=== PATIENT | female | born 1940 | race Caucasian/White ===

== ENCOUNTER → 2017-07-11 | Outpatient (CLI) | payer MEDICARE ==
--- NOTE | 2017-07-11 13:30 | XR ---
EXAMINATION TYPE: XR chest 2V DATE OF EXAM: 07/11/2017 COMPARISON: 07/27/2016 HISTORY: Shortness of breath TECHNIQUE: Frontal and lateral views of the chest are obtained. FINDINGS: Scattered senescent parenchymal changes noted. Hyperinflation compatible with COPD. No evidence for infiltrate. No evidence for atelectasis. Heart size is stable. Mediastinal structures are stable and grossly unremarkable. No evidence for hilar prominence. Degenerative changes dorsal spine. IMPRESSION: 1. No evidence for acute pulmonary disease.
== END | disposition home or self-care (01) ==
LOC: RADXRMAIN 13:11
PROVIDERS: ATTEND Family Medicine
DX: J44.9 Chronic obstructive pulmonary disease, unspecified (principal)
CPT/HCPCS: 71020

== ENCOUNTER → 2018-02-11 | Outpatient (CLI) | payer MEDICARE ==
--- NOTE | 2018-02-11 11:37 | XR ---
EXAMINATION TYPE: XR ribs RT DATE OF EXAM: 02/11/2018 COMPARISON: NONE HISTORY: 77-year-old female fall 2 weeks ago, complaining of right rib pain TECHNIQUE: 4 views FINDINGS: No displaced right rib fracture seen. Visualized right hemithorax is clear. IMPRESSION: No displaced right rib fracture seen.
== END | disposition home or self-care (01) ==
LOC: RADXRMAIN 10:27
PROVIDERS: ATTEND Family Medicine
DX: T79.9XXA Unspecified early complication of trauma, initial encounter (principal)

== ENCOUNTER → 2018-04-02 | Outpatient (CLI) | payer MEDICARE ==
--- NOTE | 2018-04-03 08:52 | MM ---
Reason for exam: additional evaluation requested from prior study. Last mammogram was performed 1 year and 8 months ago. History: Patient is postmenopausal and has history of breast cancer at age 59. Family history of breast cancer in sister at age 76. Benign excisional biopsy of the right breast, 2006. Malignant mastectomy of the left breast, 1998. Took hormonal contraceptives for 1 year beginning at age 30. Physical Findings: A clinical breast exam by your physician is recommended on an annual basis and results should be correlated with mammographic findings. MG 3D Diag Mammo W/Cad RT CC and MLO view(s) were taken of the right breast. Prior study comparison: July 27, 2016, right breast MG 3d diag mammo w/cad RT. January 06, 2015, mammogram, performed at [place]. There are scattered fibroglandular densities. No significant new findings when compared with previous films. These results were verbally communicated with the patient and result sheet given to the patient on 04/02/18. ASSESSMENT: Benign, BI-RAD 2 RECOMMENDATION: Routine screening mammogram of both breasts in 1 year.
== END | disposition home or self-care (01) ==
LOC: RADMAMWWP 13:24
PROVIDERS: ATTEND Family Medicine
DX: Z08 Encounter for follow-up examination after completed treatment for malignant neoplasm (principal); Z85.3 Personal history of malignant neoplasm of breast
CPT/HCPCS: 77065; G0279; 77061

== ENCOUNTER → 2018-07-25 | Outpatient (CLI) | payer MEDICARE ==
--- NOTE | 2018-07-25 15:37 | CTL ---
EXAMINATION TYPE: CT Low Dose Lung DATE OF EXAM ORDERED: 07/25/2018 HISTORY: Personal history of tobacco use. Lung cancer screening CT DLP: 85.[address] CTDI: 2.4 mGy Automated exposure control for dose reduction was used. SCREENING VISIT: Subsequent COMPARISON: 03/26/2018 TECHNIQUE: Low dose computed tomography scan was performed through the chest at 1 mm thick sections a nd reconstructed images in the coronal plane at [address] DIAGNOSTIC QUALITY: Satisfactory FINDINGS: LUNG NODULES: Present, detailed below: Small apical nodules best identified in the coronal reconstruc mojgan images are again evident and stable in size. LUNGS: COPD: Severity: Moderate. Findings are compatible with some chronic bronchitis. Peribronchial thicken ing is present bilaterally Fibrosis: Severity: None Lymph nodes: Multiple scattered small lymph nodes are within the mediastinum. Other findings: None RIGHT PLEURAL SPACE: Effusion: None Calcification: None Thickening: None Pneumothorax: None LEFT PLEURAL SPACE: Effusion: None Calcification: None Thickening: None Pneumothorax: None HEART: Heart Size: Normal Coronary calcification: Mild Pericardial effusion: None OTHER FINDINGS: Upper abdomen: Normal Bony thorax: Normal Supraclavicular region: Normal Other: Left mastectomy has been performed. The ascending thoracic aorta at the level of main pulmonary artery is 3.3 cm. The main pulmonary darell ry the bifurcation is 2.1 cm. IMPRESSION: Probably benign findings. FOLLOW UP CT CHEST RECOMMENDATION: Follow-up low dose screening CT chest [address] LUNG RAD: Lung rad 3
== END | disposition home or self-care (01) ==
LOC: RADCTMAIN 13:09
PROVIDERS: ATTEND Family Medicine
DX: Z12.2 Encounter for screening for malignant neoplasm of respiratory organs (principal); Z87.891 Personal history of nicotine dependence

== ENCOUNTER → 2019-07-10 | Outpatient (CLI) | payer MEDICARE ==
--- NOTE | 2019-07-11 14:13 | MM ---
Reason for exam: screening (asymptomatic). Last mammogram was performed 1 year and 3 months ago. History: Patient is postmenopausal and has history of breast cancer at age 59. Family history of breast cancer in sister at age 76. Benign excisional biopsy of the right breast, 2006. Malignant mastectomy of the left breast, 1998. Took hormonal contraceptives for 1 year beginning at age 30. Physical Findings: A clinical breast exam by your physician is recommended on an annual basis and results should be correlated with mammographic findings. MG 3D Scr [place] Unilateral W/Cad CC, MLO, and XCCL view(s) were taken of the right breast. Prior study comparison: April 02, 2018, right breast MG 3d diag mammo w/cad RT. July 27, 2016, right breast MG 3d diag mammo w/cad RT. There are scattered fibroglandular densities. Benign appearing calcifications in the right breast. No suspicious abnormality. No significant changes when compared with prior studies. ASSESSMENT: Benign, BI-RAD 2 RECOMMENDATION: Routine screening mammogram of the right breast in 1 year.
== END | disposition home or self-care (01) ==
LOC: RADMAMWWP 13:20
PROVIDERS: ATTEND Family Medicine
DX: Z12.31 Encounter for screening mammogram for malignant neoplasm of breast (principal)
CPT/HCPCS: 77067

== ENCOUNTER → 2019-09-08 | Outpatient (CLI) | payer MEDICARE ==
--- NOTE | 2019-09-08 14:47 | CT ---
EXAMINATION TYPE: CT chest wo con DATE OF EXAM: 09/08/2019 COMPARISON: 07/25/2018 HISTORY: Pulmonary nodule follow-up. CT DLP: 252.[address] of the chest was performed with lung and mediastinal window settings submitted. The la ck of contrast limits evaluation of the vascular, mediastinal and parenchymal structures including th e upper abdomen. LUNGS: Apical pleural nodularity remains unchanged. Largest pleural-based nodule left upper lobe torie ures 6 mm versus 6 mm previously. Largest nodular density right upper lobe and measures approximately 5.6 mm unchanged from prior study. No new nodules are identified. No evidence for mass or infiltrate . MEDIASTINUM/KAELA: Thoracic aorta is of normal caliber with limited evaluation given lack of contrast . The heart is not enlarged. No evidence for mediastinal mass. No lymph nodes greater than 1cm. UPPER ABDOMEN: No significant abnormality is seen. OTHER: Left sided mastectomy changes redemonstrated. IMPRESSION: 1. Stable less scattered upper lobe pleural-based nodularity. No suspicious nodules are seen. Contin ued follow-up over a two-year timeframe is recommended radiographically.
== END | disposition home or self-care (01) ==
LOC: RADCTMAIN 14:21
PROVIDERS: ATTEND Family Medicine
DX: R91.8 Other nonspecific abnormal finding of lung field (principal)
CPT/HCPCS: 71250

== ENCOUNTER → 2021-01-11 | Outpatient (CLI) | payer MEDICARE ==
--- NOTE | 2021-01-12 10:26 | MM ---
Reason for exam: screening (asymptomatic). Last mammogram was performed 1 year and 6 months ago. History: Patient is postmenopausal and has history of breast cancer at age 59. Family history of breast cancer in sister at age 76. Benign excisional biopsy of the right breast, 2006. Malignant mastectomy of the left breast, 1998. Took hormonal contraceptives for 1 year beginning at age 30. Physical Findings: A clinical breast exam by your physician is recommended on an annual basis and results should be correlated with mammographic findings. MG 3D Screening Mammo W/Cad CC and MLO view(s) were taken of the right breast. Prior study comparison: July 10, 2019, bilateral MG 3d scr barrie unilateral w/cad. April 02, 2018, right breast MG 3d diag mammo w/cad RT. There are scattered fibroglandular densities. There are benign appearing round, linear calcifications in the right breast. There is no discrete abnormality. ASSESSMENT: Benign, BI-RAD 2 RECOMMENDATION: Follow-up diagnostic mammogram of the right breast in 1 year.
== END | disposition home or self-care (01) ==
LOC: RADMAMWWP 11:24
PROVIDERS: ATTEND Family Medicine
DX: Z12.31 Encounter for screening mammogram for malignant neoplasm of breast (principal); Z90.12 Acquired absence of left breast and nipple; Z80.3 Family history of malignant neoplasm of breast
CPT/HCPCS: 77063; 77067

== ENCOUNTER 2021-05-12 08:27 | Day surgery (SDC) | payer MEDICARE ==
[2021-05-10 11:22] VITALS: BMI 24.3
[~2021-05-12 08:27] MED LIST: LACTATED RINGERS 1,000 ML IV SCH
[2021-05-12] MEDS ORDERED: LIDOCAINE 1% (10MG/ML) FOR IV START INTRADERMA ONE (09:28)
[2021-05-12 09:35] VITALS: RESP 16; TEMP 98.7
[2021-05-12] MEDS ORDERED: PROPOFOL 10 MG/ML 20 ML VIAL IV ONE (09:35)
--- NOTE | 2021-05-12 09:38 | P.GSHP ---
History of Present Illness H&P Date: 05/12/21 Chief Complaint: GI bleed This a 80-year-old female who presents today for colonoscopy. Patient is fecal occult blood positive. She Past Medical History Past Medical History: Cancer, COPD, Hyperlipidemia, Hypertension Additional Past Medical History / Comment(s): lt breast cancer. pos.cologuard History of Any Multi-Drug Resistant Organisms: None Reported Past Surgical History: Breast Surgery Additional Past Surgical History / Comment(s): lt mastectomy with lymph nodes Past Anesthesia/Blood Transfusion Reactions: No Reported Reaction Smoking Status: Current every day smoker Medications and Allergies Home Medications Medication Instructions Recorded Confirmed Type Albuterol Sulfate [Proair Hfa] 1 - 2 puff INHALATION DAILY PRN 05/10/21 05/12/21 History Aspirin [Adult Low Dose Aspirin EC] 81 mg PO DAILY 05/10/21 05/12/21 History Atorvastatin [Lipitor] 20 mg PO HS 05/10/21 05/12/21 History Bisoprolol-Hctz 10-6.25 mg [Ziac 1 tab PO HS 05/10/21 05/12/21 History 10-6.25 MG] Cholecalciferol [Vitamin D3 (25 25 mcg PO DAILY 05/10/21 05/12/21 History Mcg = 1000 Iu)] Tiotropium Br/Olodaterol HCl 2 puff INHALATION DAILY 05/10/21 05/12/21 History [Stiolto Respimat Inhal [place]] Allergies Allergy/AdvReac Type Severity Reaction Status Date / Time No Known Allergies Allergy Verified 05/12/21 09:20 Surgical - Exam Vital Signs Temp Pulse Resp BP Pulse Ox 98.7 F 92 16 173/79 96 05/12/21 09:28 05/12/21 09:28 05/12/21 09:28 05/12/21 09:28 05/12/21 09:28 - General well developed, well nourished, no distress - Eyes PERRL - ENT normal pinna - Neck no masses - Respiratory normal expansion - Cardiovascular Rhythm: regular - Abdomen Abdomen: soft, non tender Assessment and Plan Assessment: GI bleed. We'll perform colonoscopy.
--- NOTE | 2021-05-12 10:00 | P.OP ---
Date of Procedure: 05/12/21 Preoperative Diagnosis: GI bleed Postoperative Diagnosis: Internal and external hemorrhoids Diverticulosis Procedure(s) Performed: Colonoscopy Anesthesia: MAC Surgeon: Harjit Ibrahim Pathology: none sent Condition: stable Disposition: PACU Description of Procedure: The patient's placed on the endoscopy table in the lateral position. She received IV sedation. Digital rectal exam was performed which revealed internal/external hemorrhoids. Flexible scope was then placed patient anus and passed throughout the entire colon. The ileocecal valve sutures. The cecum appeared normal. The ascending colon was normal. In the transverse colon and a few scattered diverticula. In the descending and sigmoid: There was more diverticula seen. The scope was brought back the rectum this appeared normal. There is no unsteady GI bleed. His presumed patient's GI bleed was due to diverticulosis or hemorrhoids.
[2021-05-12 10:59] VITALS: BP 116/52; PULSE 88
== END 2021-05-12 10:59 | disposition home or self-care (01) ==
LOC: ORWHC2ENDO 08:27
PROVIDERS: ATTEND Surgery
DX: K64.8 Other hemorrhoids (principal); K64.4 Residual hemorrhoidal skin tags; E78.5 Hyperlipidemia, unspecified; F17.200 Nicotine dependence, unspecified, uncomplicated; I10 Essential (primary) hypertension; J44.9 Chronic obstructive pulmonary disease, unspecified; Z85.3 Personal history of malignant neoplasm of breast; Z79.82 Long term (current) use of aspirin; Z90.12 Acquired absence of left breast and nipple
CPT/HCPCS: 45378; J2704

== ENCOUNTER → 2022-05-26 | Outpatient (CLI) | payer MEDICARE ==
--- NOTE | 2022-05-29 18:53 | MM ---
Reason for Exam: Screening (asymptomatic). Last mammogram was performed 1 year(s) and 4 month(s) ago. Patient History: Menarche at age 12. First Full-Term at age 22. Postmenopausal. Breast cancer, left, age 59. Hormonal Contraceptives for 1 year from age 30 until age 31. 1998, Malignant Mastectomy on the left side. 2006, Benign Excisional Biopsy on the right side. Sister had breast cancer, age 76. Prior Study Comparison: 04/02/2018 Right Diagnostic Mammogram, [facility]. 07/10/2019 Bilateral Screening Mammogram, [facility]. 01/11/2021 Bilateral Screening Mammogram, [facility]. Tissue Density: Right: There are scattered fibroglandular densities. Findings: Analyzed By CAD. Benign secretory calcifications are noted. No significant change from prior exams. Overall Assessment: Benign, BI-RAD 2 Management: Screening Mammogram of the right breast in 1 year. 1. Patient should continue monthly self breast exam. 2. A clinical breast exam by your physician is recommended on an annual basis. 3. This exam should not preclude additional follow-up of suspicious palpable abnormalities. Electronically signed and approved by: Gita Stiles M.D. Radiologist
== END | disposition home or self-care (01) ==
LOC: RADMAMWWP 14:34
PROVIDERS: ATTEND Family Medicine
DX: Z12.31 Encounter for screening mammogram for malignant neoplasm of breast (principal); Z78.0 Asymptomatic menopausal state; Z80.3 Family history of malignant neoplasm of breast
CPT/HCPCS: 77067

== ENCOUNTER 2023-02-17 23:18 | Inpatient (IN) | payer MEDICARE ==
[2023-02-17] MEDS ORDERED: IPRATROPIUM 0.5 MG/2.5 ML NEBU INHALATION STA (23:25)
[2023-02-17] MEDS ORDERED: DEXAMETHASONE SOD PHOSPHATE 10 MG/ML 1 ML VIAL IVP STA (23:25)
[2023-02-17] MEDS ORDERED: ALBUTEROL NEBULIZED 2.5 MG/3 ML INHALATION STA (23:25)
[2023-02-17] MEDS: MAGNESIUM SULFATE-D5W PMX 1 GM in DEXTROSE/WATER 1 100ML.BAG IVPB SCH (23:41)
[2023-02-17] MEDS ORDERED: LORazepam 2 MG/ML INJ IV STA (23:46)
[2023-02-17] MEDS ORDERED: ONDANSETRON 4 MG/2 ML VIAL IVP STA (23:47)
[2023-02-18 00:08] LABS: Basophils % (A) 0 %; Eosinophils # (A) 0.5 k/uL (0-0.7); Eosinophils % (A) 7 %; HCT 39.9 % (34.0-46.0); HGB 12.9 gm/dL (11.4-16.0); Lymphocytes # (A) 2.5 k/uL (1.0-4.8); Lymphocytes % (A) 35 %; MCH 29.6 pg (25.0-35.0); MCHC 32.2 g/dL (31.0-37.0); MCV 91.9 fL (80.0-100.0); Monocytes # (A) 0.4 k/uL (0-1.0); Monocytes % (A) 6 %; Neutrophils # (A) 3.4 k/uL (1.3-7.7); Neutrophils % (A) 49 %; Platelet Count 262 k/uL (150-450); RBC 4.34 m/uL (3.80-5.40); RDW 13.7 % (11.5-15.5); WBC 6.9 k/uL (3.8-10.6)
[2023-02-18] MEDS ORDERED: NALOXONE 0.4 MG/ML 1 ML VIAL IV PRN (00:12)
--- NOTE | 2023-02-18 00:15 | ED ---
General Adult HPI - General Chief complaint: Shortness of Breath Stated complaint: sob Time Seen by Provider: 02/17/23 23:18 Source: EMS Mode of arrival: EMS Limitations: no limitations - History of Present Illness Initial comments: This is an 82-year-old female with a past medical history including COPD and hypertension presented to the emergency department via EMS for increasing shortness of breath. The patient did present, tripoding in shortened sentences only able to speak in 1-2 words at a time. The patient had been given a DuoNeb 2 by EMS with only minimal improvement. The patient did state that this is been occurring over the last 3 hours and stated that it does feel like her COPD. The patient could not provide any further history at this time. The patient did however deny any recent sick contacts and denied any knowledge of what makes her COPD worse or better. - Related Data Home Medications Medication Instructions Recorded Confirmed Albuterol Sulfate [Proair Hfa] 1 - 2 puff INHALATION DAILY PRN 05/10/21 05/12/21 Aspirin [Adult Low Dose Aspirin EC] 81 mg PO DAILY 05/10/21 05/12/21 Atorvastatin [Lipitor] 20 mg PO HS 05/10/21 05/12/21 Bisoprolol-Hctz 10-6.25 mg [Ziac 1 tab PO HS 05/10/21 05/12/21 10-6.25 MG] Cholecalciferol [Vitamin D3 (25 25 mcg PO DAILY 05/10/21 05/12/21 Mcg = 1000 Iu)] Tiotropium Br/Olodaterol HCl 2 puff INHALATION DAILY 05/10/21 05/12/21 [Stiolto Respimat Inhal [place]] Allergies Allergy/AdvReac Type Severity Reaction Status Date / Time No Known Allergies Allergy Verified 05/12/21 09:20 Review of Systems ROS Statement: Those systems with pertinent positive or pertinent negative responses have been documented in the HPI. ROS Other: All systems not noted in ROS Statement are negative. Past Medical History Past Medical History: Cancer, COPD, Hyperlipidemia, Hypertension Additional Past Medical History / Comment(s): lt breast cancer. pos.cologuard History of Any Multi-Drug Resistant Organisms: None Reported Past Surgical History: Breast Surgery Additional Past Surgical History / Comment(s): lt mastectomy with lymph nodes Past Anesthesia/Blood Transfusion Reactions: No Reported Reaction Past Psychological History: No Psychological Hx Reported Smoking Status: Current every day smoker - Past Family History Mother Family Medical History: No Reported History Father Family Medical History: No Reported History General Exam Limitations: no limitations General appearance: alert, anxious, in distress (In respiratory distress) Head exam: Present: atraumatic, normocephalic, normal inspection Eye exam: Present: normal appearance, PERRL Pupils: Present: normal accommodation ENT exam: Present: normal exam, normal oropharynx, mucous membranes moist Neck exam: Present: normal inspection, full ROM Respiratory exam: Present: respiratory distress, wheezes, decreased breath sounds Cardiovascular Exam: Present: regular rate, normal rhythm, normal heart sounds GI/Abdominal exam: Present: soft, normal bowel sounds Extremities exam: Present: normal inspection, full ROM Back exam: Present: normal inspection, full ROM Neurological exam: Present: alert, oriented X3, CN II-XII intact Psychiatric exam: Present: normal mood, anxious Skin exam: Present: warm, dry Course Vital Signs 02/17/23 02/17/23 02/17/23 23:19 23:40 23:52 Temperature Pulse Rate 98 94 Respiratory 28 H Rate Blood Pressure 181/99 192/92 O2 Sat by Pulse 83 L 97 Oximetry Fraction of 50 Inspired Oxygen (FIO2) 02/18/23 02/18/23 02/18/23 00:02 00:04 00:06 Temperature Pulse Rate 84 83 84 Respiratory Rate Blood Pressure 138/73 138/73 138/73 O2 Sat by Pulse 100 100 100 Oximetry Fraction of Inspired Oxygen (FIO2) 02/18/23 02/18/23 02/18/23 00:08 00:15 00:25 Temperature Pulse Rate 82 68 Respiratory 20 Rate Blood Pressure 138/73 138/73 O2 Sat by Pulse 100 Oximetry Fraction of Inspired Oxygen (FIO2) 02/18/23 02/18/23 02/18/23 00:30 00:45 00:56 Temperature Pulse Rate 78 78 76 Respiratory 20 Rate Blood Pressure 147/86 118/65 O2 Sat by Pulse 100 100 Oximetry Fraction of Inspired Oxygen (FIO2) 02/18/23 02/18/23 01:00 01:23 Temperature 97.7 F Pulse Rate 87 Respiratory 20 Rate Blood Pressure 118/61 O2 Sat by Pulse 97 Oximetry Fraction of Inspired Oxygen (FIO2) EKG Findings - EKG Comments: EKG Findings:: An EKG was obtained and was interpreted by myself showing a rate of 92, ME interval of 201, QRS duration of 120 and QTC of 431. This EKG showed a normal sinus rhythm with a right bundle branch block however there was significant artifact secondary to patient movement. There was however no ST segment elevations or depressions noted. Medical Decision Making - Medical Decision Making Was pt. sent in by a medical professional or institution (LEROY Frank, FUEL DOCK ATTENDANT, urgent care, hospital, or longterm...) When possible be specific @ -No Did you speak to anyone other than the patient for history (EMS, parent, family, police, friend...)? What history was obtained from this source @ -Yes, EMS reported the patient was short of breath and had been given DuoNeb's without any improvement. Did you review nursing and triage notes (agree or disagree)? Why? @ -I reviewed and agree with nursing and triage notes Were old charts reviewed (outside hosp., previous admission, EMS record, old EKG, old radiological studies, urgent care reports/EKG's, longterm records)? Report findings @ -No old charts were reviewed Differential Diagnosis (chest pain, altered mental status, abdominal pain women, abdominal pain men, vaginal bleeding, weakness, fever, dyspnea, syncope, headache, dizziness, GI bleed, back pain, seizure, CVA, palpatations, mental health)? @ -COPD exacerbation, pneumonia, pneumothorax EKG interpreted by me (3pts min.). @ -As above X-rays interpreted by me (1pt min.). @ -Chest x-ray was obtained and was interpreted by myself showing no acute process. CT interpreted by me (1pt min.). @ -None done U/S interpreted by me (1pt. min.). @ -None done What testing was considered but not performed or refused? (CT, X-rays, U/S, labs)? Why? @ -None What meds were considered but not given or refused? Why? @ -None Did you discuss the management of the patient with other professionals (professionals i.e. LEROY Frank, FUEL DOCK ATTENDANT, lab, RT, psych nurse, social science analyst, youth care specialist, teacher, mechanical engineering officer, case operator)? Give summary @ -Yes, admitting team was contacted regarding patient admission. Was smoking cessation discussed for >3mins.? @ -Yes Was critical care preformed (if so, how long)? @ -Yes, see above Were there social determinants of health that impacted care today? How? (Homelessness, low income, unemployed, alcoholism, drug addiction, transportation, low edu. Level, literacy, decrease access to med. care, skilled nursing, r ehab)? @ -No Was there de-escalation of care discussed even if they declined (Discuss DNR or withdrawal of care, Hospice)? DNR status @ -No What co-morbidities impacted this encounter? (DM, HTN, Smoking, COPD, CAD, Cancer, CVA, ARF, Chemo, Hep., AIDS, mental health diagnosis, sleep apnea, morbid obesity)? @ -COPD, hypertension Was patient admitted / discharged? Hospital course, mention meds given and route, prescriptions, significant lab abnormalities, going to OR and other pertinent info. @ -The patient was seen and evaluated in the emergency department. Physical exam, the patient was in respiratory distress with x-ray wheezes bilaterally and diminished breath sounds. The patient was tripoding and was speaking in shortened sentences. Due to this, the patient was started on BiPAP and was given a breathing treatment as well as Decadron and magnesium. The patient continued to remain closely observed in the emergency department. Due to the patient's COPD exacerbation requiring BiPAP, in the setting of hypoxia, the patient will be admitted for further workup and evaluation. The patient was told of this plan and was agreeable. On reevaluation, the patient did have improvement of her respiratory symptoms. The patient was admitted in stable condition. Undiagnosed new problem with uncertain prognosis? @ -No Drug Therapy requiring intensive monitoring for toxicity (Heparin, Nitro, Insulin, Cardizem)? @ -No Were any procedures done? @ -No Diagnosis/symptom? @ -COPD exacerbation, on BiPAP Acute, or Chronic, or Acute on Chronic? @ -Acute on chronic Uncomplicated (without systemic symptoms) or Complicated (systemic symptoms)? @ -Complicated Side effects of treatment? @ -No Exacerbation, Progression, or Severe Exacerbation? @ -Severe exacerbation Poses a threat to life or bodily function? How? (Chest pain, [place], HI, pneumonia, PE, COPD, DKA, ARF, appy, cholecystitis, CVA, Diverticulitis, Homicidal, Suicidal, threat to staff... and all critical care pts) @ -Yes, continued exacerbation can lead to hypoxia and and organ damage and possible . - Lab Data Result diagrams: 02/17/23 23:33 Lab Results 02/17/23 02/17/23 02/17/23 Range/Units 23:33 23:33 23:33 WBC 6.9 (3.8-10.6) k/uL RBC 4.34 (3.80-5.40) m/uL Hgb 12.9 (11.4-16.0) gm/dL Hct 39.9 (34.0-46.0) % MCV 91.9 (80.0-100.0) fL MCH 29.6 (25.0-35.0) pg MCHC 32.2 (31.0-37.0) g/dL RDW 13.7 (11.5-15.5) % Plt Count 262 (150-450) k/uL MPV 7.0 Neutrophils % 49 % Lymphocytes % 35 % Monocytes % 6 % Eosinophils % 7 % Basophils % 0 % Neutrophils # 3.4 (1.3-7.7) k/uL Lymphocytes # 2.5 (1.0-4.8) k/uL Monocytes # 0.4 (0-1.0) k/uL Eosinophils # 0.5 (0-0.7) k/uL Basophils # 0.0 (0-0.2) k/uL PT 10.2 (9.0-12.0) sec INR 1.0 (<1.2) APTT 21.8 L (22.0-30.0) sec Troponin I <0.012 (0.000-0.034) ng/mL Critical Care Time Critical Care Time: Yes Total Critical Care Time: 32 Disposition Clinical Impression: COPD exacerbation, Respiratory failure with hypoxia Disposition: ADMITTED IP TO THIS HOSP Condition: Fair Is patient prescribed a controlled substance at d/c from ED?: No Time of Disposition: 23:30 Decision to Admit Reason: Admit from EC Decision Date: 02/17/23 Decision Time: 23:30
[2023-02-18 00:26] LABS: Partial Thromboplastin Time 21.8 sec (22.0-30.0); Prothrombin Time 10.2 sec (9.0-12.0)
[2023-02-18] MEDS: MAGNESIUM SULFATE-D5W PMX 1 GM in DEXTROSE/WATER 1 100ML.BAG IVPB SCH (00:42)
--- NOTE | 2023-02-18 01:00 | XR ---
EXAM: XR Chest, 2 Views CLINICAL HISTORY: ITS.REASON XR Reason: SOB TECHNIQUE: Frontal and lateral views of the chest. COMPARISON: Prior CT chest 12/19/2022. FINDINGS: Lungs: Mild biapical pleural-parenchymal thickening. Mild hyperinflation. No focal consolidation Pleural space: Unremarkable. No pneumothorax. Heart: Unremarkable. No cardiomegaly. Mediastinum: Unremarkable. Bones/joints: Unremarkable. IMPRESSION: No acute findings in the chest.
[2023-02-18 03:20] LABS: ALT 36 U/L (4-34); AST 52 U/L (14-36); African American GFR (CKD) >90 (>60 ml/min/1.73 sqM); Albumin 4.3 g/dL (3.5-5.0); Alkaline Phosphatase 93 U/L (38-126); Anion Gap 6 mmol/L; Blood Urea Nitrogen 19 mg/dL (7-17); Calcium 9.4 mg/dL (8.4-10.2); Carbon Dioxide 31 mmol/L (22-30); Chloride 107 mmol/L (98-107); Glucose 151 mg/dL (74-99); Lipase 143 U/L (23-300); Magnesium 2.2 mg/dL (1.6-2.3); Non-African American GFR(CKD) 81 (>60 ml/min/1.73 sqM); Potassium 4.1 mmol/L (3.5-5.1); Sodium 144 mmol/L (137-145); Total Bilirubin 0.5 mg/dL (0.2-1.3); Total Protein 6.9 g/dL (6.3-8.2)
[2023-02-18] MEDS ORDERED: IPRATROPIUM-ALBUTEROL 3 ML NEB INHALATION PRN (07:06)
[2023-02-18] MEDS ORDERED: ACETAMINOPHEN TAB 325 MG TAB PO PRN (07:06)
[2023-02-18] MEDS ORDERED: ONDANSETRON 4 MG/2 ML VIAL IVP PRN (07:07)
[2023-02-18] MEDS ORDERED: DEXTROSE 50% SYRINGE 50 ML IVP PRN ×4 (07:07→09:48)
[2023-02-18] MEDS ORDERED: INSULIN ASPART (NovoLOG) 100 UNIT/ML VIAL SQ SCH (07:30)
[2023-02-18 08:44] LABS: Glucose,Whole Blood 177 mg/dL (70-110)
[2023-02-18] MEDS: ASPIRIN 81 MG PO SCH (09:01)
[2023-02-18] MEDS: PANTOPRAZOLE 40 MG TABLET PO SCH (09:01)
[2023-02-18] MEDS: CHOLECALCIFEROL 25 MCG (1000 IU) TABLET PO SCH (09:01)
[2023-02-18] MEDS: IPRATROPIUM-ALBUTEROL 3 ML NEB INHALATION SCH ×4 (09:22→21:08)
[2023-02-18] MEDS: FORMOTEROL FUMARATE 20 MCG/2 ML NEBU INHALATION SCH ×2 (09:22→21:08)
--- NOTE | 2023-02-18 09:48 | P.HPIM ---
History of Present Illness This is a pleasant 82 years old female with past medical history of COPD, Hyperlipidemia, Hypertension Patient presents because of dyspnea which was slightly worse over the last 3-4 days but she got severe episodes of dyspnea yesterday that lasted 30-45 minutes. Patient has been having cough with white phlegm especially over the last few days but she denies chest pain. No urinary or GI symptoms, no diarrhea or vomiting dysuria urgency. No headache dizziness weakness or numbness. She smokes about half pack per day and she was counseled to quit and she agrees but she declines nicotine patch alcohol and illicit drugs. 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 Ish Conley. Patient had remote history of breast cancer in 1998 with no recent therapy. Her recently last Sunday but she denies overt signs symptoms of depression, she denies suicidal or homicidal ideation. I offered anxiolytic but she declines patient is afebrile, saturating 99% on 2 L oxygen. Mildly tachypneic. She has an unremarkable CBC, INR, BMP. Liver enzymes mildly elevated with AST 52 and ALT 36 but bilirubin is normal. Troponin is negative less than 0.012. EKG showing normal sinus rhythm at 92 with a prolonged QRS with the right Bundle-branch block, T-wave inversion in V1 and V2, QTC 431 Chest x-ray: No acute process. Hyperinflated chest In the emergency room patient received breathing treatment, dexamethasone and Ativan. Review of Systems Review of systems CONSTITUTIONAL: No fever, no malaise, no fatigue. HEENT: No recent visual problems or hearing problems. Denied any sore throat. CARDIOVASCULAR: No orthopnea, PND, no palpitations, no syncope. PULMONARY: No chest wall tenderness, no hemoptysis. GASTROINTESTINAL: No diarrhea, no nausea, no vomiting, no abdominal pain. Normoactive bowel sounds. NEUROLOGICAL: No headaches, no weakness, no numbness. HEMATOLOGICAL: Denies any bleeding or petechiae. GENITOURINARY: Denies any burning micturition, frequency, or urgency. MUSCULOSKELETAL/RHEUMATOLOGICAL: Denies any joint pain, swelling, or any muscle pain. ENDOCRINE: Denies any polyuria or polydipsia. Past Medical History Past Medical History: Cancer, COPD, Hyperlipidemia, Hypertension Additional Past Medical History / Comment(s): lt breast cancer. pos.cologuard History of Any Multi-Drug Resistant Organisms: None Reported Past Surgical History: Breast Surgery Additional Past Surgical History / Comment(s): lt mastectomy with lymph nodes Past Anesthesia/Blood Transfusion Reactions: No Reported Reaction Past Psychological History: No Psychological Hx Reported Smoking Status: Current every day smoker - Past Family History Mother Family Medical History: No Reported History Father Family Medical History: No Reported History Medications and Allergies Home Medications Medication Instructions Recorded Confirmed Type Albuterol Sulfate [Proair Hfa] 1 - 2 puff INHALATION DAILY PRN 05/10/21 05/12/21 History Aspirin [Adult Low Dose Aspirin EC] 81 mg PO DAILY 05/10/21 05/12/21 History Atorvastatin [Lipitor] 20 mg PO HS 05/10/21 05/12/21 History Bisoprolol-Hctz 10-6.25 mg [Ziac 1 tab PO HS 05/10/21 05/12/21 History 10-6.25 MG] Cholecalciferol [Vitamin D3 (25 25 mcg PO DAILY 05/10/21 05/12/21 History Mcg = 1000 Iu)] Tiotropium Br/Olodaterol HCl 2 puff INHALATION DAILY 05/10/21 05/12/21 History [Stiolto Respimat Inhal [place]] Allergies Allergy/AdvReac Type Severity Reaction Status Date / Time No Known Allergies Allergy Verified 05/12/21 09:20 Physical Exam Vitals: Vital Signs Temp Pulse Pulse Resp BP BP Pulse Ox 02/18/23 04:00 97.8 F 77 18 135/68 99 02/18/23 01:45 97.4 F L 78 18 125/66 100 02/18/23 01:23 97.7 F 02/18/23 01:00 87 20 118/61 97 02/18/23 00:56 76 02/18/23 00:45 78 118/65 100 02/18/23 00:30 78 20 147/86 100 02/18/23 00:25 68 02/18/23 00:15 82 20 138/73 100 02/18/23 00:08 138/73 02/18/23 00:06 84 138/73 100 02/18/23 00:04 83 138/73 100 02/18/23 00:02 84 138/73 100 02/17/23 23:52 02/17/23 23:40 94 192/92 97 02/17/23 23:19 98 28 H 181/99 83 L FiO2 02/18/23 04:00 02/18/23 01:45 02/18/23 01:23 02/18/23 01:00 02/18/23 00:56 02/18/23 00:45 02/18/23 00:30 02/18/23 00:25 02/18/23 00:15 02/18/23 00:08 02/18/23 00:06 02/18/23 00:04 02/18/23 00:02 02/17/23 23:52 50 02/17/23 23:40 02/17/23 23:19 Intake and Output 02/17/23 02/18/23 02/18/23 22:59 06:59 14:59 Other: Weight 68.039 kg GENERAL: The patient is alert and oriented x3, not in any acute distress. Well developed, well nourished. HEENT: Pupils are round and equally reacting to light. EOMI. No scleral icterus. No conjunctival pallor. Normocephalic, atraumatic. No pharyngeal erythema. No thyromegaly. CARDIOVASCULAR: S1 and S2 present. No murmurs, rubs, or gallops. -PULMONARY: Chest is clear to auscultation, bilateral expiratory wheezing, no crackles. ABDOMEN: Soft, nontender, nondistended, normoactive bowel sounds. No palpable organomegaly. MUSCULOSKELETAL: No joint swelling or deformity. EXTREMITIES: No cyanosis, clubbing, or pedal edema. NEUROLOGICAL: Gross neurological examination did not reveal any focal deficits. SKIN: No rashes. no petechiae. Results CBC & Chem 7: 02/17/23 23:33 02/17/23 23:33 Labs: Abnormal Lab Results - Last 24 Hours (Table) 02/17/23 02/17/23 Range/Units 23:33 23:33 APTT 21.8 L (22.0-30.0) sec Carbon Dioxide 31 H (22-30) mmol/L BUN 19 H (7-17) mg/dL Glucose 151 H (74-99) mg/dL AST 52 H (14-36) U/L ALT 36 H (4-34) U/L Thrombosis Risk Factor Assmnt - Choose All That Apply Any of the Below Risk Factors Present?: Yes Each Factor Represents 1 point: Abnormal pulmonary function (COPD), Medical pt on bed rest, Obesity (BMI >25), Serious lung disease incl. pneumonia (< 1month) Other Risk Factors: Yes Each Risk Factor Represents 3 Points: Age 75 years or older Thrombosis Risk Factor Assessment Total Risk Factor Score: 7 Thrombosis Risk Factor Assessment Level: High Risk Assessment and Plan Assessment: Acute COPD exacerbation Nicotine dependence bereavement for recent of spouse Hypertension Hyperlipidemia Plan: Continue with steroids IV Solu-Medrol Medrol 40 mg Continue with bronchodilator short course of Zithromax Pulmonary consult Labs and medication were reviewed.. Continue same treatment. Continue with symptomatic treatment. Resume home medication. Monitor labs and vitals. DVT and GI prophylaxis. Further recommendations as per clinical course of the patient DVT prophylaxis: Subcutaneous heparin GI Prophylaxis: Ppi PT/OT: Pending Prognosis is guarded
[2023-02-18 12:37] LABS: Glucose,Whole Blood 119 mg/dL (70-110)
--- NOTE | 2023-02-18 12:40 | P.CNPUL ---
History of Present Illness Consult date: 02/18/23 Reason for consult: dyspnea, COPD History of present illness: 82-year-old female patient, known history of COPD also chronic smoker is currently smoking 6 cigarettes a day. The patient also has an approximately week ago. She was grieving the loss of her .. She was smoking more than usual. She presented hospital because of worsening shortness of breath. Some limited cough and congestion. No chest pain. No altered mentation. No angina. No pleurisy. No hemoptysis. She has been maintained on Stiolto on an outpatient basis. He is currently on 2 L of oxygen by nasal cannula. Her blood work is essentially within normal limits. Her CBC shows a white cell count 6.1 with a hemoglobin of 12.9. Normal coagulation profile. Normal electrolytes including a sodium level of 144, potassium level of 4.1, BUN is 19 with a creatinine of 0.7. Troponins are negative. LFTs are within normal limits. Chest x-ray is consistent with COPD and hyperinflation. 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 Based on pulmonary function test is not known. Review of Systems CONSTITUTIONAL: No fever, no malaise, no fatigue. HEENT: No recent visual problems or hearing problems. Denied any sore throat. CARDIOVASCULAR: No orthopnea, PND, no palpitations, no syncope. PULMONARY: No chest wall tenderness, no hemoptysis. Shortness of breath as discussed above GASTROINTESTINAL: No diarrhea, no nausea, no vomiting, no abdominal pain. Normoactive bowel sounds. NEUROLOGICAL: No headaches, no weakness, no numbness. HEMATOLOGICAL: Denies any bleeding or petechiae. GENITOURINARY: Denies any burning micturition, frequency, or urgency. MUSCULOSKELETAL/RHEUMATOLOGICAL: Denies any joint pain, swelling, or any muscle pain. ENDOCRINE: Denies any polyuria or polydipsia. Past Medical History Past Medical History: Cancer, COPD, Hyperlipidemia, Hypertension Additional Past Medical History / Comment(s): lt breast cancer. pos.cologuard History of Any Multi-Drug Resistant Organisms: None Reported Past Surgical History: Breast Surgery Additional Past Surgical History / Comment(s): lt mastectomy with lymph nodes Past Anesthesia/Blood Transfusion Reactions: No Reported Reaction Past Psychological History: No Psychological Hx Reported Smoking Status: Current every day smoker - Past Family History Mother Family Medical History: No Reported History Father Family Medical History: No Reported History Medications and Allergies Home Medications Medication Instructions Recorded Confirmed Type Albuterol Sulfate [Proair Hfa] 2 puff INHALATION RT-Q6H PRN 05/10/21 02/18/23 History Aspirin [Adult Low Dose Aspirin EC] 81 mg PO DAILY 05/10/21 02/18/23 History Atorvastatin [Lipitor] 20 mg PO HS 05/10/21 02/18/23 History Bisoprolol-Hctz 10-6.25 mg [Ziac 1 tab PO DAILY 05/10/21 02/18/23 History 10-6.25 MG] Tiotropium Br/Olodaterol HCl 2 puff INHALATION RT-DAILY 05/10/21 02/18/23 History [Stiolto Respimat Inhal [place]] Allergies Allergy/AdvReac Type Severity Reaction Status Date / Time No Known Allergies Allergy Verified 02/18/23 11:22 Physical Exam Vitals: Vital Signs Temp Pulse Pulse Resp BP BP Pulse Ox 02/18/23 09:42 80 02/18/23 09:32 80 02/18/23 09:31 78 02/18/23 09:22 78 99 02/18/23 08:00 80 16 125/72 96 02/18/23 04:00 97.8 F 77 18 135/68 99 02/18/23 01:45 97.4 F L 78 18 125/66 100 02/18/23 01:23 97.7 F 02/18/23 01:00 87 20 118/61 97 02/18/23 00:56 76 02/18/23 00:45 78 118/65 100 02/18/23 00:30 78 20 147/86 100 02/18/23 00:25 68 02/18/23 00:15 82 20 138/73 100 02/18/23 00:08 138/73 02/18/23 00:06 84 138/73 100 02/18/23 00:04 83 138/73 100 02/18/23 00:02 84 138/73 100 02/17/23 23:52 02/17/23 23:40 94 192/92 97 02/17/23 23:19 98 28 H 181/99 83 L FiO2 02/18/23 09:42 02/18/23 09:32 02/18/23 09:31 02/18/23 09:22 02/18/23 08:00 02/18/23 04:00 02/18/23 01:45 02/18/23 01:23 02/18/23 01:00 02/18/23 00:56 02/18/23 00:45 02/18/23 00:30 02/18/23 00:25 02/18/23 00:15 02/18/23 00:08 02/18/23 00:06 02/18/23 00:04 02/18/23 00:02 02/17/23 23:52 50 02/17/23 23:40 02/17/23 23:19 Intake and Output 02/17/23 02/18/23 02/18/23 22:59 06:59 14:59 Intake Total 180 Balance 180 Intake: Oral 180 Other: Weight 68.039 kg GENERAL: The patient is alert and oriented x3, not in any acute distress. Well developed, well nourished. She is currently having no labored breathing Head exam was generally normal. There was no scleral icterus or corneal arcus. Mucous membranes were moist. HEENT: Pupils are round and equally reacting to light. EOMI. No scleral icterus. No conjunctival pallor. Normocephalic, atraumatic. No pharyngeal erythema. No thyromegaly. CARDIOVASCULAR: S1 and S2 present. No murmurs, rubs, or gallops. -PULMONARY: Chest is clear to auscultation, bilateral expiratory wheezing, no crackles. The patient has about chest along with expiratory wheezes throughout the lung disease bilaterally ABDOMEN: Soft, nontender, nondistended, normoactive bowel sounds. No palpable organomegaly. MUSCULOSKELETAL: No joint swelling or deformity. EXTREMITIES: No cyanosis, clubbing, or pedal edema. NEUROLOGICAL: Gross neurological examination did not reveal any focal deficits. SKIN: No rashes. no petechiae. Results - Laboratory Findings CBC and BMP: 02/17/23 23:33 02/17/23 23:33 PT/INR, D-dimer PT 10.2 sec (9.0-12.0) 02/17/23 23:33 INR 1.0 (<1.2) 02/17/23 23:33 Abnormal lab findings: Abnormal Labs 02/17/23 02/17/23 02/18/23 23:33 23:33 08:43 APTT 21.8 L Carbon Dioxide 31 H BUN 19 H Glucose 151 H POC Glucose (mg/dL) 177 H AST 52 H ALT 36 H - Diagnostic Findings Chest x-ray: image reviewed Assessment and Plan Plan: Acute COPD exacerbation, without any established exacerbating factor. No evidence of pneumonia. Chest x-ray is clear of any acute pulmonary infiltrates. He is a chronic smoker. COPD, chronic, maintained Stiolto on on outpatient basis Nicotine dependence History of breast cancer with previous mastectomy on the left Hypertension Hyperlipidemia Plan Continue DuoNeb neb treatments around the clock, 4 times a day Continue IV Solu-Medrol 40 mg every 8 hours Oxygen if needed to maintain saturation above 90% We'll cover the patient with Zithromax Smoking cessation counseling We'll follow on outpatient basis including based on PFTs to be done to assess the severity of her COPD.
[2023-02-18] MEDS: INSULIN ASPART (NovoLOG) 100 UNIT/ML VIAL SQ SCH ×3 (12:44→20:52)
[2023-02-18] MEDS: methylPREDNISolone SOD SUCCI 40 MG/ML 1 ML VIAL IV SCH ×2 (12:47→17:28)
[2023-02-18] MEDS: AZITHROMYCIN 500 MG TAB PO SCH (12:47)
[2023-02-18 16:43] LABS: Glucose,Whole Blood 127 mg/dL (70-110)
[2023-02-18 20:11] LABS: Glucose,Whole Blood 195 mg/dL (70-110)
[2023-02-18] MEDS: HEPARIN SODIUM,PORCINE/PF 5,000 UNIT/0.5 ML SYRINGE SQ SCH (20:52)
[2023-02-18] MEDS: ATORVASTATIN 20 MG TAB PO SCH (20:52)
[2023-02-19] MEDS: methylPREDNISolone SOD SUCCI 40 MG/ML 1 ML VIAL IV SCH ×3 (00:09→16:30)
[2023-02-19] MEDS: INSULIN ASPART (NovoLOG) 100 UNIT/ML VIAL SQ SCH ×4 (06:35→22:21)
[2023-02-19] MEDS: PANTOPRAZOLE 40 MG TABLET PO SCH (06:39)
[2023-02-19] MEDS: ASPIRIN 81 MG PO SCH (08:46)
[2023-02-19] MEDS: AZITHROMYCIN 500 MG TAB PO SCH (08:46)
[2023-02-19] MEDS: CHOLECALCIFEROL 25 MCG (1000 IU) TABLET PO SCH (08:46)
[2023-02-19] MEDS: HEPARIN SODIUM,PORCINE/PF 5,000 UNIT/0.5 ML SYRINGE SQ SCH ×2 (08:46→22:42)
[2023-02-19] MEDS: FORMOTEROL FUMARATE 20 MCG/2 ML NEBU INHALATION SCH ×2 (08:51→21:13)
[2023-02-19] MEDS: IPRATROPIUM-ALBUTEROL 3 ML NEB INHALATION SCH ×4 (08:51→21:13)
[2023-02-19 11:51] LABS: Glucose,Whole Blood 128 mg/dL (70-110)
--- NOTE | 2023-02-19 12:23 | P.PN ---
Subjective Progress Note Date: 02/19/23 The patient is seen today 02/19/2023 in follow-up on the regular medical floor. Being treated for a COPD exacerbation. She has chronic and ongoing nicotine dependence. Maintaining O2 saturations in the 90s on room air. Afebrile. Hemodynamically stable. Glucose 128. Hemoglobin A1c 5.8. She is continued on DuoNeb inhalations Perforomist inhalations, IV Solu-Medrol. Antibiotic in the form of azithromycin. Objective - Vital Signs Vital signs: Vital Signs Temp 98.1 F 02/19/23 07:21 Pulse 88 02/19/23 09:14 Resp 16 02/19/23 07:21 BP 115/61 02/19/23 07:21 Pulse Ox 95 02/19/23 08:52 FiO2 50 02/17/23 23:52 Intake & Output 02/18/23 02/19/23 02/19/23 18:59 06:59 18:59 Intake Total 540 Balance 540 Intake: Oral 540 Other: Voiding Method Toilet # Voids 1 1 - Exam GENERAL EXAM: Alert, 82-year-old female, on room air, fairly comfortable in no apparent distress. HEAD: Normocephalic. EYES: Normal reaction of pupils, equal size. NOSE: Clear with pink turbinates. THROAT: No erythema or exudates. NECK: No masses, no JVD. CHEST: No chest wall deformity. LUNGS: Equal air entry with bilateral wheezing, diminished. CVS: S1 and S2 normal with no audible murmur, regular rhythm. ABDOMEN: No hepatosplenomegaly, normal bowel sounds, no guarding or rigidity. SPINE: No scoliosis or deformity SKIN: No rashes CENTRAL NERVOUS SYSTEM: No focal deficits, tone is normal in all 4 extremities. EXTREMITIES: There is no peripheral edema. No clubbing, no cyanosis. Peripheral pulses are intact. - Labs CBC & Chem 7: 02/17/23 23:33 02/17/23 23:33 Labs: Abnormal Lab Results - Last 24 Hours (Table) 02/18/23 02/18/23 02/18/23 Range/Units 12:36 16:41 20:10 POC Glucose (mg/dL) 119 H 127 H 195 H (70-110) mg/dL 02/19/23 Range/Units 11:50 POC Glucose (mg/dL) 128 H (70-110) mg/dL Assessment and Plan Assessment: Acute COPD exacerbation, without any established exacerbating factor. No evidence of pneumonia. Chest x-ray is clear of any acute pulmonary infiltrates. COPD, chronic, maintained Stiolto on on outpatient basis Nicotine dependence History of breast cancer with previous mastectomy on the left Hypertension Hyperlipidemia Plan: The patient was seen and evaluated Labs, medications reviewed Add Pulmicort inhalations Educated regarding the importance of complete smoking cessation NicoDerm patch will be offered We will continue to follow I have personally seen and examined the patient, performed the documentation and the assessment and plan as written. Number of minutes spent on the visit: 10.
[2023-02-19] MEDS: NICOTINE 14MG/24HR PATCH TRANSDERM SCH (13:37)
[2023-02-19 16:46] LABS: Glucose,Whole Blood 118 mg/dL (70-110)
[2023-02-19 21:01] LABS: Glucose,Whole Blood 130 mg/dL (70-110)
[2023-02-19] MEDS: BUDESONIDE 1 MG/2 ML NEBU INHALATION SCH (21:13)
[2023-02-19] MEDS: BISOPROLOL-HCTZ 10-6.25 MG 1 EACH TAB PO SCH (22:42)
[2023-02-19] MEDS: ATORVASTATIN 20 MG TAB PO SCH (22:42)
[2023-02-20] MEDS: methylPREDNISolone SOD SUCCI 40 MG/ML 1 ML VIAL IV SCH ×3 (00:54→15:40)
[2023-02-20 05:57] LABS: Glucose,Whole Blood 130 mg/dL (70-110)
[2023-02-20] MEDS: INSULIN ASPART (NovoLOG) 100 UNIT/ML VIAL SQ SCH ×4 (06:00→21:36)
[2023-02-20] MEDS: PANTOPRAZOLE 40 MG TABLET PO SCH (06:27)
[2023-02-20] MEDS: CHOLECALCIFEROL 25 MCG (1000 IU) TABLET PO SCH (07:42)
[2023-02-20] MEDS: AZITHROMYCIN 500 MG TAB PO SCH (07:42)
[2023-02-20] MEDS: HEPARIN SODIUM,PORCINE/PF 5,000 UNIT/0.5 ML SYRINGE SQ SCH ×2 (07:42→21:33)
[2023-02-20] MEDS: BISOPROLOL-HCTZ 10-6.25 MG 1 EACH TAB PO SCH (07:42)
[2023-02-20] MEDS: ASPIRIN 81 MG PO SCH (07:42)
[2023-02-20] MEDS: NICOTINE 14MG/24HR PATCH TRANSDERM SCH (07:43)
--- NOTE | 2023-02-20 08:40 | PN ---
PROGRESS NOTE SUBJECTIVE: An 82-year-old white female, remains on DuoNeb updrafts q.i.d., streptomycin for pneumonia, hypertension, Perforomist for COPD, Solu-Medrol for COPD, nicotine patch for nicotine addiction, Protonix for GERD. OBJECTIVE: VITAL SIGNS: Temperature 97.7, pulse 90s to 70s, blood pressure 150s over 60s, O2 of 94% on room air. CARDIOVASCULAR: S1, S2. LUNGS: Scattered rhonchi and wheeze. HEMATOLOGY: Negative Homans. PSYCH: Fair mood and affect. NEUROLOGIC: Alert and oriented x3. ASSESSMENT: Chronic obstructive pulmonary disease exacerbation, tracheobronchitis, acute hypoxemic respiratory failure. PLAN: Continue with steroids, antibiotics updrafts for 1 to 2 days prior to discharge. The patient is slowly improving. Smoking cessation. Nicotine patch was given. YECENIA / AMERICAN: [id number] /
[2023-02-20] MEDS: IPRATROPIUM-ALBUTEROL 3 ML NEB INHALATION SCH ×4 (09:12→20:24)
[2023-02-20] MEDS: FORMOTEROL FUMARATE 20 MCG/2 ML NEBU INHALATION SCH ×2 (09:12→20:24)
[2023-02-20] MEDS: BUDESONIDE 1 MG/2 ML NEBU INHALATION SCH ×2 (09:17→20:24)
[2023-02-20 11:33] LABS: Glucose,Whole Blood 163 mg/dL (70-110)
--- NOTE | 2023-02-20 11:54 | P.PN ---
Subjective Progress Note Date: 02/20/23 The patient is seen today 02/19/2023 in follow-up on the regular medical floor. Being treated for a COPD exacerbation. She has chronic and ongoing nicotine dependence. Maintaining O2 saturations in the 90s on room air. Afebrile. Hemodynamically stable. Glucose 128. Hemoglobin A1c 5.8. She is continued on DuoNeb inhalations Perforomist inhalations, IV Solu-Medrol. Antibiotic in the form of azithromycin. The patient is seen today 02/20/2023 in follow-up on the regular medical floor. She is currently up ambulating in her room. Awake and alert in no acute distress. Breathing a bit easier today compared to yesterday. She still has a loose congested cough. Maintaining good O2 saturations in the mid 90s on room air. Afebrile. She is continued on DuoNeb inhalations, Pulmicort and Perforo mist inhalations, IV Solu-Medrol. Completed a course of antibiotics. NicoDerm patch offered. Objective - Vital Signs Vital signs: Vital Signs Temp 97.6 F 02/20/23 06:55 Pulse 84 02/20/23 09:37 Resp 16 02/20/23 06:55 BP 170/81 02/20/23 06:55 Pulse Ox 95 02/20/23 09:13 FiO2 50 02/17/23 23:52 Intake & Output 02/19/23 02/20/23 02/20/23 18:59 06:59 18:59 Output Total 3 Balance -3 Output: Urine 3 Other: Voiding Method Toilet # Voids 2 1 - Exam GENERAL EXAM: Alert, very pleasant 82-year-old female, on room air, comfortable in no apparent distress. HEAD: Normocephalic. EYES: Normal reaction of pupils, equal size. NOSE: Clear with pink turbinates. THROAT: No erythema or exudates. NECK: No masses, no JVD. CHEST: No chest wall deformity. LUNGS: Equal air entry with bilateral wheezing, diminished. CVS: S1 and S2 normal with no audible murmur, regular rhythm. ABDOMEN: No hepatosplenomegaly, normal bowel sounds, no guarding or rigidity. SPINE: No scoliosis or deformity SKIN: No rashes CENTRAL NERVOUS SYSTEM: No focal deficits, tone is normal in all 4 extremities. EXTREMITIES: There is no peripheral edema. No clubbing, no cyanosis. Peripheral pulses are intact. - Labs CBC & Chem 7: 02/17/23 23:33 02/17/23 23:33 Labs: Abnormal Lab Results - Last 24 Hours (Table) 02/19/23 02/19/23 02/19/23 Range/Units 11:50 16:45 21:00 POC Glucose (mg/dL) 128 H 118 H 130 H (70-110) mg/dL 02/20/23 02/20/23 Range/Units 05:54 11:32 POC Glucose (mg/dL) 130 H 163 H (70-110) mg/dL Assessment and Plan Assessment: Acute COPD exacerbation, without any established exacerbating factor. No evid ence of pneumonia. Chest x-ray is clear of any acute pulmonary infiltrates. COPD, chronic, maintained Stiolto on on outpatient basis Nicotine dependence History of breast cancer with previous mastectomy on the left Hypertension Hyperlipidemia Plan: The patient was seen and evaluated Medications reviewed Stable and on room air Cleared for discharge from the pulmonary standpoint Again educated regarding the importance of complete smoking cessation NicoDerm patch was offered Would benefit from outpatient workup including full pulmonary function testing Would recommend discharging on Symbicort along with her Stiolto or perhaps just Trelegy Continue albuterol HFA plus DuoNeb inhalations as needed I have personally seen and examined the patient, performed the documentation and the assessment and plan as written. Number of minutes spent on the visit: 10.
[2023-02-20 16:37] LABS: Glucose,Whole Blood 130 mg/dL (70-110)
[2023-02-20 20:37] LABS: Glucose,Whole Blood 148 mg/dL (70-110)
[2023-02-20] MEDS: ATORVASTATIN 20 MG TAB PO SCH (21:33)
[2023-02-21] MEDS: methylPREDNISolone SOD SUCCI 40 MG/ML 1 ML VIAL IV SCH ×2 (01:14→08:27)
[2023-02-21 06:01] LABS: Glucose,Whole Blood 121 mg/dL (70-110)
[2023-02-21] MEDS: PANTOPRAZOLE 40 MG TABLET PO SCH (07:00)
[2023-02-21] MEDS: INSULIN ASPART (NovoLOG) 100 UNIT/ML VIAL SQ SCH ×2 (07:02→11:42)
[2023-02-21] MEDS: ASPIRIN 81 MG PO SCH (08:27)
[2023-02-21] MEDS: CHOLECALCIFEROL 25 MCG (1000 IU) TABLET PO SCH (08:27)
[2023-02-21] MEDS: NICOTINE 14MG/24HR PATCH TRANSDERM SCH (08:27)
[2023-02-21] MEDS: HEPARIN SODIUM,PORCINE/PF 5,000 UNIT/0.5 ML SYRINGE SQ SCH (08:27)
[2023-02-21] MEDS: BISOPROLOL-HCTZ 10-6.25 MG 1 EACH TAB PO SCH (08:27)
[2023-02-21] MEDS: BUDESONIDE 1 MG/2 ML NEBU INHALATION SCH (08:49)
[2023-02-21] MEDS: IPRATROPIUM-ALBUTEROL 3 ML NEB INHALATION SCH ×2 (08:49→12:03)
[2023-02-21] MEDS: FORMOTEROL FUMARATE 20 MCG/2 ML NEBU INHALATION SCH (08:49)
[2023-02-21 09:24] LABS: Basophils # (A) 0.02 X 10*3/uL (0.00-0.10); Basophils % (A) 0.2 %; Eosinophils # (A) 0 X 10*3/uL (0.04-0.35); Eosinophils % (A) 0 %; HCT 38.3 % (37.2-46.3); HGB 12.3 g/dL (12.0-15.0); Immature Grans, Automated 1.4 %; Lymphocytes # (A) 0.57 X 10*3/uL (0.90-5.00); Lymphocytes % (A) 6.6 %; MCH 29.4 pg (27.0-32.0); MCHC 32.1 g/dL (32.0-37.0); MCV 91.6 fL (80.0-97.0); Mean Platelet Volume 9.7 fL (9.5-12.2); Monocytes # (A) 0.27 X 10*3/uL (0.20-1.00); Monocytes % (A) 3.1 %; NRBC Per 100 WBC 0 /100 WBCS (0.0-0.0); Neutrophils # (A) 7.61 X 10*3/uL (1.80-7.70); Neutrophils % (A) 88.7 %; Platelet Count 236 X 10*3/uL (140-440); RBC 4.18 X 10*6/uL (4.10-5.20); RDW 13.5 % (11.5-14.5); WBC 8.59 X 10*3/uL (4.50-10.00)
[2023-02-21 09:29] LABS: Albumin 3.8 g/dL (3.8-4.9); Albumin/Globulin Ratio 1.81 (1.60-3.17); Anion Gap 9.4 mmol/L (10.00-18.00); BUN/Creat Ratio 30.78 Ratio (12.00-20.00); Blood Urea Nitrogen 27.7 mg/dL (9.0-27.0); Calcium 9.7 mg/dL (8.7-10.3); Carbon Dioxide 26.6 mmol/L (20.0-27.5); Globulin 2.1 g/dL (1.6-3.3); Non-African American GFR(CKD) 59.5 (60.0-200.0); Potassium 4.3 mmol/L (3.5-5.5); Total Bilirubin 0.3 mg/dL (0.30-1.20); Total Protein 5.9 g/dL (6.2-8.2)
[2023-02-21 11:41] LABS: Glucose,Whole Blood 92 mg/dL (70-110)
--- NOTE | 2023-02-21 14:24 | P.PN ---
Subjective Progress Note Date: 02/21/23 The patient is seen today 02/19/2023 in follow-up on the regular medical floor. Being treated for a COPD exacerbation. She has chronic and ongoing nicotine dependence. Maintaining O2 saturations in the 90s on room air. Afebrile. Hemodynamically stable. Glucose 128. Hemoglobin A1c 5.8. She is continued on DuoNeb inhalations Perforomist inhalations, IV Solu-Medrol. Antibiotic in the form of azithromycin. The patient is seen today 02/20/2023 in follow-up on the regular medical floor. She is currently up ambulating in her room. Awake and alert in no acute distress. Breathing a bit easier today compared to yesterday. She still has a loose congested cough. Maintaining good O2 saturations in the mid 90s on room air. Afebrile. She is continued on DuoNeb inhalations, Pulmicort and Perforo mist inhalations, IV Solu-Medrol. Completed a course of antibiotics. NicoDerm patch offered. The patient is seen today 02/21/2023 in follow-up on the regular medical floor. She is currently sitting up in bed. Awake and alert in no acute distress. Maintaining O2 saturations in the 90s on room air. She is continued on DuoNeb inhalations, Pulmicort and Perforomist inhalations, IV Solu-Medrol. Completed course of antibiotics. NicoDerm patch is in place. White count 8.5. Hemoglobin 12.3. Sodium 142. Potassium 4.3. Bicarb 27. BUN 27. Creatinine 0.9. Glucose 120. Objective - Vital Signs Vital signs: Vital Signs Temp 97.3 F L 02/21/23 07:10 Pulse 60 02/21/23 12:13 Resp 16 02/21/23 07:10 BP 170/71 02/21/23 07:10 Pulse Ox 94 L 02/21/23 08:49 FiO2 21 02/21/23 08:49 Intake & Output 02/20/23 02/21/23 02/21/23 18:59 06:59 18:59 Output Total 3 Balance -3 Output: Urine 3 Other: Voiding Method Toilet # Voids 3 # Bowel Movements 1 - Exam GENERAL EXAM: Alert, very pleasant 82-year-old female, on room air, sitting up at the bedside, comfortable in no apparent distress. HEAD: Normocephalic. EYES: Normal reaction of pupils, equal size. NOSE: Clear with pink turbinates. THROAT: No erythema or exudates. NECK: No masses, no JVD. CHEST: No chest wall deformity. LUNGS: Equal air entry with no significant wheeze, rhonchi or rales, diminished. CVS: S1 and S2 normal with no audible murmur, regular rhythm. ABDOMEN: No hepatosplenomegaly, normal bowel sounds, no guarding or rigidity. SPINE: No scoliosis or deformity SKIN: No rashes CENTRAL NERVOUS SYSTEM: No focal deficits, tone is normal in all 4 extremities. EXTREMITIES: There is no peripheral edema. No clubbing, no cyanosis. Peripheral pulses are intact. - Labs CBC & Chem 7: 02/21/23 05:54 02/21/23 05:54 Labs: Abnormal Lab Results - Last 24 Hours (Table) 02/20/23 02/20/23 02/21/23 Range/Units 16:36 20:35 05:54 Immature Gran # 0.12 H (0.00-0.04) X 10*3/uL Lymphocytes # 0.57 L (0.90-5.00) X 10*3/uL Eosinophils # 0 L (0.04-0.35) X 10*3/uL Anion Gap (10.00-18.00) mmol/L BUN (9.0-27.0) mg/dL Est GFR (CKD-EPI)NonAf (60.0-200.0) BUN/Creatinine Ratio (12.00-20.00) Ratio Glucose (70-110) mg/dL POC Glucose (mg/dL) 130 H 148 H (70-110) mg/dL Total Protein (6.2-8.2) g/dL 02/21/23 02/21/23 Range/Units 05:54 06:00 Immature Gran # (0.00-0.04) X 10*3/uL Lymphocytes # (0.90-5.00) X 10*3/uL Eosinophils # (0.04-0.35) X 10*3/uL Anion Gap 9.40 L (10.00-18.00) mmol/L BUN 27.7 H (9.0-27.0) mg/dL Est GFR (CKD-EPI)NonAf 59.5 L (60.0-200.0) BUN/Creatinine Ratio 30.78 H (12.00-20.00) Ratio Glucose 120 H (70-110) mg/dL POC Glucose (mg/dL) 121 H (70-110) mg/dL Total Protein 5.9 L (6.2-8.2) g/dL Assessment and Plan Assessment: Acute COPD exacerbation, without any established exacerbating factor. No evidence of pneumonia. Chest x-ray is clear of any acute pulmonary infiltrates. COPD, chronic, maintained Stiolto on on outpatient basis Nicotine dependence History of breast cancer with previous mastectomy on the left Hypertension Hyperlipidemia Plan: The patient was seen and evaluated Medications and labs reviewed Stable and on room air Cleared for discharge from the pulmonary standpoint Discontinue IV Solu-Medrol Initiated prednisone taper starting at 40 mg daily for 4 days Recommend Symbicort along with her home Stiolto Again educated regarding the importance of complete smoking cessation NicoDerm patch was offered I have personally seen and examined the patient, performed the documentation and the assessment and plan as written. Number of minutes spent on the visit: 10.
[2023-02-21 14:51] VITALS: BP 130/65; PULSE 81; RESP 15; TEMP 97.4
[2023-02-21] MEDS ORDERED: SYMBICORT 160-4.5 MCG INHALER INHALATION SCH (20:00)
[2023-02-22] MEDS ORDERED: predniSONE 20 MG TAB PO SCH (09:00)
--- NOTE | 2023-02-22 10:25 | DS ---
DISCHARGE SUMMARY An 82-year-old white female admitted with COPD exacerbation, tracheobronchitis, acute hypoxemic respiratory failure, hypoxemia, treated with IV steroids, updraft treatments, antibiotics for 3 to 4 days. She improved. She was stabilized. Try to wean off oxygen before discharge. She improved every day. She was sent home on a prednisone taper, which I wrote out for 60, 40, 20, 10 every 3 days, DuoNeb inhalations q.i.d., nicotine patch q.i.d., vitamin B3 of 1000 daily, Protonix 40 daily, Pulmicort 1 mg inhalation b.i.d., ProAir p.r.n. for shortness of breath inhaler, Ziac 10/6.25 daily, aspirin 81 mg daily, Lipitor 20 mg daily. Follow up as an outpatient within a week. She is admitted as mentioned, respiratory distress, treated with IV steroids, updraft treatments, antibiotics. Prognosis, she improved. For the next 2 to 3 days, she will follow up as an outpatient. She was seen by [facility], and cleared for discharge. She was weaned off oxygen. Please see further orders. Follow up in my facility. MMODL / IJN: [id number] /
== END 2023-02-21 15:40 | disposition home or self-care (01) | DRG 190 ==
LOC: EC 23:18 → 3SCARD 02-18 00:12 → 4SSUR 02-19 06:17
PROVIDERS: ADMIT Family Medicine; ATTEND Family Medicine
DX: J44.0 Chronic obstructive pulmonary disease with (acute) lower respiratory infection (principal); J96.01 Acute respiratory failure with hypoxia; J44.1 Chronic obstructive pulmonary disease with (acute) exacerbation; I10 Essential (primary) hypertension; J40 Bronchitis, not specified as acute or chronic; E78.5 Hyperlipidemia, unspecified; I45.10 Unspecified right bundle-branch block; F17.210 Nicotine dependence, cigarettes, uncomplicated; Z63.4 Disappearance and death of family member; Z90.12 Acquired absence of left breast and nipple; Z79.899 Other long term (current) drug therapy; Z79.82 Long term (current) use of aspirin; Z85.3 Personal history of malignant neoplasm of breast
CPT/HCPCS: 36415; 71046; 80053; 83036; 83690; 83735; 84484; 85025; 85610; 85730; 93005; 94640; 94660; 94760; 96365; 96366; 96375; 99291

== ENCOUNTER → 2023-07-04 | Outpatient (CLI) | payer MEDICARE ==
--- NOTE | 2023-07-04 13:06 | MM ---
Reason for Exam: Hx of breast cancer, mastectomy. Last mammogram was performed 1 year(s) and 2 month(s) ago. Patient History: Menarche at age 12. First Full-Term at age 22. Postmenopausal. Breast cancer, left, age 59. Hormonal Contraceptives for 1 year from age 30 until age 31. 1998, Malignant Mastectomy on the left side. 2006, Benign Excisional Biopsy on the right side. Sister had breast cancer, age 76. Prior Study Comparison: 04/02/2018 Right Diagnostic Mammogram, [facility]. 07/10/2019 Bilateral Screening Mammogram, [facility]. 01/11/2021 Bilateral Screening Mammogram, [facility]. 05/26/2022 Right MG 3D scr barrie unilateral w/cad., [facility]. Tissue Density: Right: There are scattered fibroglandular densities. Findings: Analyzed By CAD. Pattern appears stable. Scattered benign-appearing calcifications are present. No significant interval change. No suspicious groups of microcalcifications, spiculated or lobular masses, architectural distortion or other secondary signs of malignancy are mammographically apparent. Overall Assessment: Benign, BI-RAD 2 Management: Screening Mammogram of the right breast in 1 year. A negative mammogram report should not preclude additional follow up of suspicious palpable abnormalities. Patient should continue monthly self breast exam. A clinical breast exam by your physician is recommended on an annual basis and results should be correlated with mammographic findings. Electronically signed and approved by: Ilia Valdez D.O. Radiologis
== END | disposition home or self-care (01) ==
LOC: RADMAMWWP 12:36
PROVIDERS: ATTEND Family Medicine
DX: R92.8 Other abnormal and inconclusive findings on diagnostic imaging of breast (principal); Z85.3 Personal history of malignant neoplasm of breast; Z78.0 Asymptomatic menopausal state; Z80.3 Family history of malignant neoplasm of breast
CPT/HCPCS: 77065; G0279; 77061

== ENCOUNTER → 2023-09-19 | Outpatient (CLI) | payer MEDICARE ==
--- NOTE | 2023-09-19 15:40 | BD ---
EXAMINATION TYPE: Axial Bone Density DATE OF EXAM: 09/19/2023 CLINICAL HISTORY: 82 years old Female. ICD-10 CODE: Z78.0 POST MENOPAUSAL WITHOUT HRT Height: 63" Weight: 124lbs FRAX RISK QUESTIONS: Alcohol (3 or more units per day): No Family History (Parent hip fracture): No Glucocorticoids (More than 3mos): No (Ex: prednisone, prednisolone, methylprednisolone, dexamethasone, and hydrocortisone). History of Fracture in Adulthood: No Secondary Osteoporosis: 1. Type 1 Diabetes: No 2. Hyperthyroidism: No 3. Menopause before 45: No 4. Malnutrition: No 5. Chronic liver disease: No Rheumatoid Arthritis: No Current Tobacco Use: No RISK FACTORS HISTORY OF: Hip Fracture (Right/Left): No Spine Fracture: No History of Wrist Fracture: No Surgery to Spine/Hip(right/left)/Wrist (right/left): No Family History of Osteoporosis: No Active: Yes Diet low in dairy products/other sources of calcium: Yes Postmenopausal woman: Yes Lost more than 2 inches in height since high school: No Frequent falls: No Poor Health: No Hyperparathyroidism: No Adrenal Insufficiency: No MEDICATIONS: Prednisone or other steroids: No Thyroid Medications: No Osteoporosis Medications: No Additional Medications: Blood pressure meds, cholesterol meds, reflux medications, vitamin D, baby as pirin Additional History: None EXAM MEASUREMENTS: Bone mineral densitometry was performed using the Cubeacon System. Bone mineral density as measured about the Lumbar spine is: ----- L1-L4(G/cm2): 1.063 T Score Values are as follows: ----- L1: -1.9 ----- L2: -1.4 ----- L3: -0.3 ----- L4: -0.7 ----- L1-L4: -1.0 Z Score Values are as follows: ----- L1: 0.3 ----- L2: 0.8 ----- L3: 1.9 ----- L4: 1.5 ----- L1-L4: 1.2 Baseline @MPH Bone mineral density about the R hip (g/cm2): 0.763 Bone mineral density about the L hip (g/cm2): 0.709 T Score values are as follows: -----R Neck: -2.3 -----L Neck: -2.2 -----R Total: -1.9 -----L Total: -2.4 Z Score values are as follows: -----R Neck: 0.2 -----L Neck: 0.3 -----R Total: 0.4 -----L Total: 0.0 Baseline @MPH FRAX%s: The graph provided illustrates a 16.0% chance for a major osteoporotic fx and a 5.7% chance f or the hips probability for fx in 10 years time. IMPRESSION: Osteopenia (T Score between -2.5 and -1). There is slightly increased risk of fracture and the patient may be considered for treatment. Re-Screen 2-5 years. NOTE: T-SCORE=SD OF THE YOUNG ADULT MEAN.
== END | disposition home or self-care (01) ==
LOC: RADBDWWP 13:03
PROVIDERS: ATTEND Family Medicine
DX: M85.89 Other specified disorders of bone density and structure, multiple sites (principal); Z78.0 Asymptomatic menopausal state
CPT/HCPCS: 77080

== ENCOUNTER 2023-12-30 06:26 | Emergency (ER) | payer MEDICARE ==
--- NOTE | 2023-12-30 06:36 | ED ---
General Adult HPI - General Chief complaint: Shortness of Breath Stated complaint: REBECCA, LIP BLEEDING Time Seen by Provider: 12/30/23 06:34 Source: patient, RN notes reviewed Mode of arrival: wheelchair Limitations: no limitations - History of Present Illness Initial comments: 83-year-old female presents emergency department with chief complaint of shortn ess of breath. She is having increasing shortness of breath the last 3 days. She does have a history of COPD she has noticed increasing wheezing. She states she does not feel sick but states that she cannot breathe that is worse when she lies down she denies any history of congestive heart failure denies any leg pain leg swelling she denies any sick contacts denies any nausea vomiting. - Related Data Home Medications Medication Instructions Recorded Confirmed Albuterol Sulfate [Proair Hfa] 2 puff INHALATION RT-Q6H PRN 05/10/21 02/18/23 Aspirin [Adult Low Dose Aspirin EC] 81 mg PO DAILY 05/10/21 02/18/23 Atorvastatin [Lipitor] 20 mg PO HS 05/10/21 02/18/23 Bisoprolol-Hctz 10-6.25 mg [Ziac 1 tab PO DAILY 05/10/21 02/18/23 10-6.25 MG] Tiotropium Br/Olodaterol HCl 2 puff INHALATION RT-DAILY 05/10/21 02/18/23 [Stiolto Respimat Inhal [place]] Previous Rx's Medication Instructions Recorded Budesonide [Pulmicort] 1 mg INHALATION RT-BID 90 Days 02/21/23 #180 ml Cholecalciferol [Vitamin D3 (25 25 mcg PO DAILY 90 Days #90 tab 02/21/23 Mcg = 1000 Iu)] Ipratropium-Albuterol Nebulize 3 ml INHALATION RT-QID 30 Days 02/21/23 [Duoneb 0.5 mg-3 mg/3 ml Soln] #120 each Nicotine [Nicotrol] 10 mg INHALATION QID 30 Days #120 02/21/23 each Pantoprazole [Protonix] 40 mg PO AC-BRKFST 90 Days #90 tab 02/21/23 Azithromycin [Zithromax Z Pack] 0 tab PO DIRECTED #6 tab 12/30/23 predniSONE 50 mg PO DAILY #5 tab 12/30/23 Allergies Allergy/AdvReac Type Severity Reaction Status Date / Time No Known Allergies Allergy Verified 12/30/23 06:32 Review of Systems ROS Statement: Those systems with pertinent positive or pertinent negative responses have been documented in the HPI. ROS Other: All systems not noted in ROS Statement are negative. Past Medical History Past Medical History: Cancer, COPD, Hyperlipidemia, Hypertension Additional Past Medical History / Comment(s): lt breast cancer. pos.cologuard History of Any Multi-Drug Resistant Organisms: None Reported Past Surgical History: Breast Surgery Additional Past Surgical History / Comment(s): lt mastectomy with lymph nodes Past Anesthesia/Blood Transfusion Reactions: No Reported Reaction Past Psychological History: No Psychological Hx Reported Smoking Status: Former smoker Past Alcohol Use History: None Reported Past Drug Use History: None Reported - Past Family History Mother Family Medical History: No Reported History Father Family Medical History: No Reported History General Exam Limitations: no limitations General appearance: alert, in no apparent distress Head exam: Present: atraumatic, normocephalic, normal inspection Eye exam: Present: normal appearance, PERRL, EOMI. Absent: scleral icterus, conjunctival injection, periorbital swelling ENT exam: Present: normal exam, mucous membranes moist Neck exam: Present: normal inspection, full ROM. Absent: tenderness, meningismus, lymphadenopathy Respiratory exam: Present: wheezes. Absent: normal lung sounds bilaterally, respiratory distress, rales, rhonchi, stridor Cardiovascular Exam: Present: regular rate, normal rhythm, normal heart sounds. Absent: systolic murmur, diastolic murmur, rubs, gallop, clicks GI/Abdominal exam: Present: soft, normal bowel sounds. Absent: distended, tenderness, guarding, rebound, rigid Extremities exam: Present: pedal edema Neurological exam: Present: alert, oriented X3, CN II-XII intact Course Vital Signs 12/30/23 12/30/23 12/30/23 06:28 08:36 08:48 Temperature 98.1 F Pulse Rate 99 65 65 Respiratory 22 16 16 Rate Blood Pressure 193/87 O2 Sat by Pulse 96 Oximetry EKG Findings - EKG Comments: EKG Findings:: EKG performed at 7: 00 sinus rhythm with a rate of 84 AR 155 QRS 120 QT/QTc 397/438 is a noted right bundle - EKG Results: EKG: interpreted by LUIS Medical Decision Making - Medical Decision Making Was pt. sent in by a medical professional or institution (LEROY Frank, HEALTH PLAN SPECIALIST, urgent care, hospital, or snf...) When possible be specific @ -No Did you speak to anyone other than the patient for history (EMS, parent, family, police, friend...)? What history was obtained from this source @ -No Did you review nursing and triage notes (agree or disagree)? Why? @ -I reviewed and agree with nursing and triage notes Were old charts reviewed (outside hosp., previous admission, EMS record, old EKG, old radiological studies, urgent care reports/EKG's, snf records)? Report findings @ -Reviewed prior chest x-ray, laboratory studies Differential Diagnosis (chest pain, altered mental status, abdominal pain women, abdominal pain men, vaginal bleeding, weakness, fever, dyspnea, syncope, headache, dizziness, GI bleed, back pain, seizure, CVA, palpatations, mental health, musculoskeletal)? @ -Differential Dyspnea: Coronary syndrome, arrhythmia, tamponade, asthma, COPD, pulmonary embolism, pneumonia, pneumothorax, pulmonary effusion, anaphylaxis, diabetic ketoacidosis, flailed chest, pulmonary contusion, diaphragmatic rupture, anemia, neuromuscular, this is not meant to be an all-inclusive list. EKG interpreted by me (3pts min.). @ -As above X-rays interpreted by me (1pt min.). @ -Chest x-ray shows COPD changes CT interpreted by me (1pt min.). @ -None done U/S interpreted by me (1pt. min.). @ -None done What testing was considered but not performed or refused? (CT, X-rays, U/S, labs)? Why? @ -None What meds were considered but not given or refused? Why? @ -None Did you discuss the management of the patient with other professionals (professionals i.e. LEROY Frank, HEALTH PLAN SPECIALIST, lab, RT, psych nurse, executive secretary social welfare, policy change clerk, t eacher, licensed loan officer assistant, behavioral health case manager)? Give summary @ -No Was smoking cessation discussed for >3mins.? @ -No Was critical care preformed (if so, how long)? @ -No Were there social determinants of health that impacted care today? How? (Homelessness, low income, unemployed, alcoholism, drug addiction, transportation, low edu. Level, literacy, decrease access to med. care, alf, rehab)? @ -No Was there de-escalation of care discussed even if they declined (Discuss DNR or withdrawal of care, Hospice)? DNR status @ -No What co-morbidities impacted this encounter? (DM, HTN, Smoking, COPD, CAD, Cance r, CVA, ARF, Chemo, Hep., AIDS, mental health diagnosis, sleep apnea, morbid obesity)? @ -COPD Was patient admitted / discharged? Hospital course, mention meds given and route, prescriptions, significant lab abnormalities, going to OR and other pertinent info. @ -This charge patient's presented for dyspnea patient has underlying COPD. Patient feels greatly improved after Solu-Medrol, feeling treatments laboratory studies unremarkable. Patient feels comfortable with discharge with continuation treatments, steroids and antibiotics. Undiagnosed new problem with uncertain prognosis? @ -No Drug Therapy requiring intensive monitoring for toxicity (Heparin, Nitro, Insulin, Cardizem)? @ -No Were any procedures done? @ -No Diagnosis/symptom? @ -COPD with exacerbation Acute, or Chronic, or Acute on Chronic? @ -Acute Uncomplicated (without systemic symptoms) or Complicated (systemic symptoms)? @ -Complicated] Side effects of treatment? @ -No Exacerbation, Progression, or Severe Exacerbation? @ -Exacerbation Poses a threat to life or bodily function? How? (Chest pain, USA, ND, pneumonia, PE, COPD, DKA, ARF, appy, cholecystitis, CVA, Diverticulitis, Homicidal, Suicidal, threat to staff... and all critical care pts) @ -Yes low risk COPD - Lab Data Result diagrams: 12/30/23 06:40 12/30/23 06:40 Lab Results 12/30/23 12/30/23 12/30/23 Range/Units 06:40 06:40 06:40 WBC 3.8 (3.8-10.6) k/uL RBC 4.00 (3.80-5.40) m/uL Hgb 10.5 L (11.4-16.0) gm/dL Hct 32.6 L (34.0-46.0) % MCV 81.5 (80.0-100.0) fL MCH 26.2 (25.0-35.0) pg MCHC 32.2 (31.0-37.0) g/dL RDW 15.5 (11.5-15.5) % Plt Count 235 (150-450) k/uL MPV 8.0 Neutrophils % 57 % Lymphocytes % 23 % Monocytes % 5 % Eosinophils % 11 % Basophils % 1 % Neutrophils # 2.2 (1.3-7.7) k/uL Lymphocytes # 0.9 L (1.0-4.8) k/uL Monocytes # 0.2 (0-1.0) k/uL Eosinophils # 0.4 (0-0.7) k/uL Basophils # 0.0 (0-0.2) k/uL Hypochromasia Slight PT 10.6 (10.0-12.5) sec INR 1.0 (<1.2) APTT 22.7 (22.0-30.0) sec Sodium 140 (137-145) mmol/L Potassium 3.7 (3.5-5.1) mmol/L Chloride 105 (98-107) mmol/L Carbon Dioxide 29 (22-30) mmol/L Anion Gap 6 mmol/L BUN 16 (7-17) mg/dL Creatinine 0.84 (0.52-1.04) mg/dL Est GFR (CKD-EPI)AfAm 74 (>60 ml/min/1.73 sqM) Est GFR (CKD-EPI)NonAf 64 (>60 ml/min/1.73 sqM) Glucose 100 H (74-99) mg/dL Plasma Lactic Acid Lane (0.7-2.0) mmol/L Calcium 9.5 (8.4-10.2) mg/dL Magnesium 2.0 (1.6-2.3) mg/dL Total Bilirubin 0.7 (0.2-1.3) mg/dL AST 27 (14-36) U/L ALT 18 (4-34) U/L Alkaline Phosphatase 99 (38-126) U/L Troponin I (0.000-0.034) ng/mL NT-Pro-B Natriuret Pep 273 pg/mL Total Protein 6.1 L (6.3-8.2) g/dL Albumin 3.9 (3.5-5.0) g/dL Influenza Type A (PCR) (Not Detectd) Influenza Type B (PCR) (Not Detectd) RSV (PCR) (Not Detectd) SARS-CoV-2 (PCR) (Not Detectd) 12/30/23 12/30/23 12/30/23 Range/Units 06:40 06:40 06:52 WBC (3.8-10.6) k/uL RBC (3.80-5.40) m/uL Hgb (11.4-16.0) gm/dL Hct (34.0-46.0) % MCV (80.0-100.0) fL MCH (25.0-35.0) pg MCHC (31.0-37.0) g/dL RDW (11.5-15.5) % Plt Count (150-450) k/uL MPV Neutrophils % % Lymphocytes % % Monocytes % % Eosinophils % % Basophils % % Neutrophils # (1.3-7.7) k/uL Lymphocytes # (1.0-4.8) k/uL Monocytes # (0-1.0) k/uL Eosinophils # (0-0.7) k/uL Basophils # (0-0.2) k/uL Hypochromasia PT (10.0-12.5) sec INR (<1.2) APTT (22.0-30.0) sec Sodium (137-145) mmol/L Potassium (3.5-5.1) mmol/L Chloride (98-107) mmol/L Carbon Dioxide (22-30) mmol/L Anion Gap mmol/L BUN (7-17) mg/dL Creatinine (0.52-1.04) mg/dL Est GFR (CKD-EPI)AfAm (>60 ml/min/1.73 sqM) Est GFR (CKD-EPI)NonAf (>60 ml/min/1.73 sqM) Glucose (74-99) mg/dL Plasma Lactic Acid Lane 1.2 (0.7-2.0) mmol/L Calcium (8.4-10.2) mg/dL Magnesium (1.6-2.3) mg/dL Total Bilirubin (0.2-1.3) mg/dL AST (14-36) U/L ALT (4-34) U/L Alkaline Phosphatase (38-126) U/L Troponin I <0.012 (0.000-0.034) ng/mL NT-Pro-B Natriuret Pep pg/mL Total Protein (6.3-8.2) g/dL Albumin (3.5-5.0) g/dL Influenza Type A (PCR) Not Detected (Not Detectd) Influenza Type B (PCR) Not Detected (Not Detectd) RSV (PCR) Not Detected (Not Detectd) SARS-CoV-2 (PCR) Not Detected (Not Detectd) Disposition Clinical Impression: COPD exacerbation Disposition: HOME SELF-CARE Condition: Stable Instructions (If sedation given, give patient instructions): COPD (Chronic Obstructive Pulmonary Disease) (ED) Additional Instructions: Please return to the Emergency Department if symptoms worsen or any other concerns. Prescriptions: predniSONE 50 mg PO DAILY #5 tab Azithromycin [Zithromax Z Pack] 0 tab PO DIRECTED #6 tab Is patient prescribed a controlled substance at d/c from ED?: No Referrals: Ish Conley MD [Primary Care Provider] - 1-2 days Time of Disposition: 08:53
[2023-12-30 06:53] LABS: Basophils % (A) 1 %; Eosinophils # (A) 0.4 k/uL (0-0.7); Eosinophils % (A) 11 %; HCT 32.6 % (34.0-46.0); HGB 10.5 gm/dL (11.4-16.0); Hypochromasia Slight; Lymphocytes # (A) 0.9 k/uL (1.0-4.8); Lymphocytes % (A) 23 %; MCH 26.2 pg (25.0-35.0); MCHC 32.2 g/dL (31.0-37.0); MCV 81.5 fL (80.0-100.0); Monocytes # (A) 0.2 k/uL (0-1.0); Monocytes % (A) 5 %; Neutrophils # (A) 2.2 k/uL (1.3-7.7); Neutrophils % (A) 57 %; Platelet Count 235 k/uL (150-450); RDW 15.5 % (11.5-15.5); WBC 3.8 k/uL (3.8-10.6)
[2023-12-30 07:02] LABS: ALT 18 U/L (4-34); AST 27 U/L (14-36); African American GFR (CKD) 74 (>60 ml/min/1.73 sqM); Albumin 3.9 g/dL (3.5-5.0); Alkaline Phosphatase 99 U/L (38-126); Anion Gap 6 mmol/L; Blood Urea Nitrogen 16 mg/dL (7-17); Calcium 9.5 mg/dL (8.4-10.2); Carbon Dioxide 29 mmol/L (22-30); Chloride 105 mmol/L (98-107); Glucose 100 mg/dL (74-99); Non-African American GFR(CKD) 64 (>60 ml/min/1.73 sqM); Potassium 3.7 mmol/L (3.5-5.1); Sodium 140 mmol/L (137-145); Total Bilirubin 0.7 mg/dL (0.2-1.3); Total Protein 6.1 g/dL (6.3-8.2)
[2023-12-30 07:09] LABS: NT-Pro-B-Type Natriuretic Pept 273 pg/mL
[2023-12-30 07:32] LABS: Partial Thromboplastin Time 22.7 sec (22.0-30.0); Prothrombin Time 10.6 sec (10.0-12.5)
--- NOTE | 2023-12-30 07:37 | XR ---
EXAMINATION TYPE: XR chest 2V DATE OF EXAM: 12/30/2023 7:13 AM CLINICAL INDICATION:Female, 83 years old with history of difficulty breathing; [facility] COMPARISON: 03/07/2023 TECHNIQUE: XR chest 2V. Frontal and lateral views of the chest.. FINDINGS: Lines/Tubes/Devices: No indwelling lines are seen. Extraneous densities over the chest. Heart/mediastinum: Heart size is normal. Atherosclerotic calcifications are seen in the aorta. Pulmonary vascularity: Not increased, Lungs/Pleura: Hyperinflation with flattening of the diaphragm and mild interstitial changes. No evide nce of focal consolidation, sizeable pleural effusion, or pneumothorax. Musculoskeletal: No acute osseous abnormality demonstrated in the limits of the exam. Other findings: None. IMPRESSION: 1. No acute cardiopulmonary disease process. 2. COPD changes.
[2023-12-30] MEDS: methylPREDNISolone SOD SUCCI 125 MG/2 ML VIAL IV STA (07:54)
[2023-12-30] MEDS: IPRATROPIUM-ALBUTEROL 3 ML NEB INHALATION STA (08:36)
[2023-12-30 09:35] VITALS: BP 143/77; PULSE 85; RESP 18; TEMP 98.3
== END 2023-12-30 09:04 | disposition home or self-care (01) ==
LOC: EC 06:26
DX: J44.1 Chronic obstructive pulmonary disease with (acute) exacerbation (principal); I45.10 Unspecified right bundle-branch block; I10 Essential (primary) hypertension; E78.5 Hyperlipidemia, unspecified; Z87.891 Personal history of nicotine dependence; Z79.899 Other long term (current) drug therapy; Z79.82 Long term (current) use of aspirin; Z20.822 Contact with and (suspected) exposure to COVID-19
CPT/HCPCS: 36415; 94640; 93005; 83880; 80053; 83605; 83735; 84484; 85025; 85610; 85730; 87636; 71046; 99285; 96374; J2930

== ENCOUNTER → 2024-04-10 | Outpatient (CLI) | payer MEDICARE ==
[2024-04-10 12:48] LABS: African American GFR (CKD) 69 (>60 ml/min/1.73 sqM); Blood Urea Nitrogen 17 mg/dL (7-17); Non-African American GFR(CKD) 60 (>60 ml/min/1.73 sqM)
--- NOTE | 2024-04-10 15:35 | CT ---
EXAMINATION TYPE: CT chest w con CT DLP: 303 mGycm, Automated exposure control for dose reduction was used. DATE OF EXAM: 04/10/2024 1:16 PM COMPARISON: CT chest 12/19/2022, 09/08/2019. CLINICAL INDICATION:Female, 83 years old with history of J44.9 COPD Z87.891 FORMER SMOKER; [facility], COPD, FORMER SMOKER, F/U LUNG CT. TECHNIQUE: Multiple axial images were obtained through the chest following the administration of 80 c c of Isovue 300. . Coronal and sagittal reformats reviewed. FINDINGS: LUNGS/ PLEURA: No pleural effusion, pneumothorax, or focal consolidation. Minimal right lower lobe de pendent assess atelectasis. Mild biapical pleural-parenchymal scarring. No suspicious pulmonary nodu le or mass. Minimal centrilobular emphysematous changes. AIRWAY: Patent and unremarkable.. HEART: Size within normal limits. No pericardial effusion. Mild to moderate coronary arterial calcifi cations. MEDIASTINUM: No evidence of adenopathy. VASCULATURE: No aortic aneurysm. Mild atherosclerotic calcification of the aorta and its branches MUSCULOSKELETAL: No acute osseous abnormalities SOFT TISSUES/LYMPH NODES: Post surgical changes from left mastectomy. LOWER NECK: No significant findings. UPPER ABDOMEN: No significant findings. IMPRESSION: No acute thoracic process. No significant change from prior examination.
== END | disposition home or self-care (01) ==
LOC: RADCTMAIN 12:08
PROVIDERS: ATTEND Family Medicine
DX: J44.9 Chronic obstructive pulmonary disease, unspecified (principal); Z87.891 Personal history of nicotine dependence
CPT/HCPCS: 82565; 84520; 71260; 36415; Q9967

== ENCOUNTER → 2025-04-06 | Outpatient (CLI) | payer MEDICARE ==
--- NOTE | 2025-04-06 14:50 | CT ---
EXAMINATION TYPE: CT chest wo con DATE OF EXAM: 04/06/2025 2:15 PM COMPARISON: 04/10/2024. CLINICAL INDICATION: Female, 84 years old with history of J44.9 CHRONIC OBSTRUCTIVE PULMONARY DISEASE , UNSPE; PHH, Hx of COPD TECHNIQUE: Multiple axial images were obtained through the chest. Sagittal and coronal reformats were created for review. MIP was performed on a separate workstation. Contrast used: mL of (None if empty) Oral contrast used: (None if empty) CT DLP: 340 mGycm, Automated exposure control for dose reduction was used. FINDINGS: LUNGS/ PLEURA: No focal consolidation, pneumothorax or pleural effusion. Apical scarring bilaterally. Mild apical centrilobular emphysema changes. AIRWAY: Patent and unremarkable. HEART: Size within normal limits. Moderate coronary artery calcifications present. Thickening and ca lcification of aortic valve present. MEDIASTINUM: No gross evidence of adenopathy. VASCULATURE: No aortic aneurysm. MUSCULOSKELETAL: No acute osseous abnormalities SOFT TISSUES/LYMPH NODES: The left breast is surgically absent. No lymphadenopathy identified. No sof t tissue mass in the surgical bed. LOWER NECK: No significant findings. UPPER ABDOMEN: No significant findings. IMPRESSION: 1. No evidence for acute thoracic process. 2. Mild emphysema changes. 3. Moderate coronary artery atherosclerosis. 4. Mild to moderate aortic valve calcifications. 5. Surgically absent left breast. No evidence for mass or lymphadenopathy. [facility], , 04/06/2025 2:47 PM
== END | disposition home or self-care (01) ==
LOC: RADCTMAIN 13:53
PROVIDERS: ATTEND Family Medicine
DX: J44.9 Chronic obstructive pulmonary disease, unspecified (principal); I25.10 Atherosclerotic heart disease of native coronary artery without angina pectoris; I35.0 Nonrheumatic aortic (valve) stenosis; Z90.12 Acquired absence of left breast and nipple; J43.2 Centrilobular emphysema
CPT/HCPCS: 71250